=== PATIENT | male | born 1955 | race African-American/Black ===

== ENCOUNTER 2022-10-10 08:03 | Observation (INO) | payer BC, OTHER ==
--- OUTSIDE RECORDS SUMMARY | 2022-10-10 08:07 | XMS REPORT | Continuity of Care Document ---
:1955 Author Organization [facility] t Address [address] [facility]. [address] [place] [address] Care Team Providers Name Role Phone Wily Cardoza MD Primary Care Physician [phone] Rupali Glasgow MD Attending Clinician [phone] Parviz [facility] Attending Clinician Unavailable Kristel Millard MD Attending Clinician Bhupendra [facility] Attending Clinician Unavailable Brittany Arechiga MD Attending Clinician [email or web address] Attending Clinician Unavailable MARGIE MORE Attending Clinician Unavailable REED MONTANO Attending Clinician Unavailable MD JACK WITT Attending Clinician Unavailable Kelsey Kellogg Attending Clinician [phone] JOVANNI VALENZUELA Attending Clinician Unavailable MD MALENA GALVEZ Attending Clinician UnavailSUKHWINDER Sandra Attending Clinician Unavailable EUGENE BUCKLEY Attending Clinician Unavailable BARBER FOWLER Attending Clinician Unavailable JASMINA RICHTER Attending Clinician Unavailable JONY BRYANT Attending Clinician Unavailable MD JONY BRYANT Attending Clinician Unavailable JEFFREY BOGGS Attending Clinician Unavailable CINDA MONTEMAYOR Attending Clinician Unavailable LESTER SCOTT Attending Clinician Unavailable HASMUKH BROWN Attending Clinician Unavailable [email or web address] Admitting Clinician Unavailable BRITTANY ARECHIGA Admitting Clinician Unavailable JACK WITT Admitting Clinician Unavailable MARGIE MORE Admitting Clinician Unavailable JOVANNI VALENZUELA Admitting Clinician Unavailable MD MALENA GALVEZ Admitting Clinician UnavailJONY Martinez Admitting Clinician Unavailable MD GIBSON FERNANDEZ Admitting Clinician Unavailable Payers Payer Name Policy Type Policy Number Effective Date Expiration Date Moshe arteaga [facility] - [id number] 2021 [facility] 00:00:00 (MEDICARE REPLACEMENT/ADVANTA GE - HMO) [facility] - [id number] 2021 MEDICARE SOLUTIONS 00:00:00 - MEDICARE COMPLETE (MEDICARE REPLACEMENT HMO) Problems Condition Condition Condition Status Onset Resolution Last Treating Co mments Source Name Details Category Date Date Treatment Clinician Date Type 2 Type 2 Disease Active [facility] diabetes diabetes 07-04 mellitus, mellitus, 00:00: Hosp andrew without without 00 l long-term long-term current current use of use of insulin insulin Primary Primary Disease Active Methodi hypertensi hypertensi 07-04 st on on 00:00: Hospita 00 l Colorectal Colorectal Disease Active M ethodi cancer cancer 07-03 st 00:00: Hospita 00 l Symptomati Symptomati Disease Active Overview : Methodi c anemia c anemia 07-[address] 00:00: g of this Hospita 00 note l might be different from the original. Can be drug induced. Sp 2 units of PRBCs.To see Dr. More in am. Administe r 2 units of PRBCs intraoper atively. Malignant Malignant Disease Active 2020-04 Met hodi neoplasm neoplasm 05-12 st of liver, of liver, 00:00: Hosp andrew not not 00 l specified specified as primary as primary or or secondary secondary Overlappin Overlappin Disease Active 2020-04 M ethodi g g 05-12 st malignant malignant 00:00: Hosp andrew neoplasm neoplasm 00 l of colon of colon Bone Bone Disease Active Methodi metastasis metastasis 05-19 st 00:00: Hospita 00 l Prostate Prostate Disease Active 2019-04 Metho di cancer cancer 04-26 st 00:00: Hospita 00 l Allergies, Adverse Reactions, Alerts This patient has no known allergies or adverse reactions. Family History Family Member Diagnosis Comments Start Date Stop Date Source Natural brother [facility] Natural father Stroke [facility] Natural mother Asthma [facility] Natural sister [facility] Social History Social Habit Start Date Stop Date Quantity Comments Source Gender identity [facility] Sexual orientation [facility] History of Social 2022-07-03 2022-07-[address] function 00:00:00 00:00:00 Hospital Alcohol intake 2021-09-10 2021-09-10 Current drinker [facility] dist 00:00:00 00:00:00 of alcohol Hospital (finding) Cigarettes smoked 2021-07-06 2021-07-[address] current (pack per 00:00:00 00:00:00 Hospita l day) - Reported Cigarette 2021-07-06 2021-07-06 [facility] pack-years 00:00:00 00:00:00 Hospital Tobacco use and 2021-07-06 2021-07-06 Smokeless [facility] exposure 00:00:00 00:00:00 tobacco non-user Hospital Alcohol Comment 2021-07-06 2021-07-06 red wine [facility] 00:00:00 00:00:00 [facility] History of tobacco 1999-07-24 Current smoker [facility] use 00:00:00 Hospital Sex Ass[birth year] At [birth year] [facility] 00:00:[facility] 00:00:00 Hospital Smoking Status Start Date Stop Date Source Ex-smoker 2021-07-06 00:00:00 2021-07-06 00:00:00 [facility] Medications Ordered Filled Start Stop Current Ordering Indication Dosage Frequency Signature Comments Components Source Medication Medication Date Date Medication? Clinician (SIG) Name Name amLODIPine Yes 10mg QD Take 1 Metho di (NORVASC) 5-15 tablet (10 st 10 mg 15:09: mg total) Hospita tablet 29 by mouth l daily. atorvastati Yes 10mg QD Take 1 Meth lisa n (LIPITOR) 5-15 tablet (10 st 10 mg 15:09: mg total) Hospita tablet 29 by mouth l nightly. leuprolide, Yes 22.5mg Q90D Inject Me thodi 3 month, 5-[address] (ELIGARD) 15:09: under the Hos alma delia 22.5 mg (3 29 skin every l month) 3 (three) syringe months. megestroL Yes 400mg Q.5D Take 10 mL M ethodi (MEGACE) 5-15 ([address] 400 mg/10 15:09: total) by Hos alma delia mL (10 mL) 29 mouth 2 l suspension (two) times a day. megestroL 2021-04 Yes SHAKE Methodi (MEGACE) 0-[address] 400 mg/10 00:00: TAKE 10 ML Ho spita mL (40 00 BY MOUTH l mg/mL) TWICE suspension DAILY. HumaLOG 2021-04 Yes INJECT 4 Method i KwikPen 0-[address] Insulin 200 00:00: UNDER THE H ospita unit/mL (3 00 SKIN FOUR l mL) insulin TIMES pen DAILY subcutaneou BEFORE s pen EACH MEAL ACCORDING TO SCALE BD Tomeka 2nd Yes USE 1 Metho di Gen Pen 01-[address] Needle 32 00:00: FOUR TIMES Ho spita gauge x 00 DAILY l " needle OneTouch Yes USE TO Methodi Ultra Test 01-[address] strip test 00:00: SUGARS Hospi ta strips 00 THREE l TIMES DAILY promethazin Yes 25mg Take 1 Meth lisa e 8-18 tablet (25 st (PHENERGAN) 00:00: mg total) H ospita 25 MG 00 by mouth. l tablet FeroSuL 325 Yes 325mg Q.5D Take 1 Met hodi mg (65 mg 7-[address] iron) 00:00: (325 mg Hospita tablet 00 total) by l mouth 2 (two) times a day. clonIDINE Yes APPLY 1 Metho di (CATAPRES-T 7-[address] TS) 0.2 00:00: TOPICALLY Hospi ta mg/24 hr 00 TO THE l SKIN EVERY WEEK SITagliptin 0 2022- No 100mg QD Take 1 Me thodi (JANUVIA) 3 03-[address] 100 MG 00:00: 04:59 (100 mg Hospita tablet 00 :00 total) by l mouth daily with breakfast. Lumigan Yes 1[drp] QD Administer Me thodi 0.01 % 3-[address] ophthalmic 00:00: both eyes Ho spita drops 00 nightly. l amlodipine amlodipine No amlodipine Dispatc 10 mg 10 mg 10 mg h tablet TAKE tablet TAKE tablet Health 1 TABLET BY 1 TABLET BY TAKE 1 MOUTH DAILY MOUTH DAILY TABLET BY MOUTH DAILY docusate docusate No docusate Dis patc sodium 100 sodium 100 sodium 100 h mg capsule mg capsule mg capsule Health TAKE ONE TAKE ONE TAKE ONE CAPSULE BY CAPSULE BY CAPSULE BY MOUTH TWICE MOUTH TWICE MOUTH DAILY DAILY TWICE DAILY lidocaine-p lidocaine-p No lidocaine- Dispatc rilocaine rilocaine prilocaine h 2.5 %-2.5 % 2.5 %-2.5 % 2.5 %-2.5 Health topical topical % topical cream APPLY cream APPLY cream TOPICALLY TOPICALLY APPLY TO THE TO THE TOPICALLY AFFECTED AFFECTED TO THE AREA AREA AFFECTED NEEDED FOR NEEDED FOR AREA MILD PAIN. MILD PAIN. NEEDED FOR APPLY 1/2 APPLY 1/2 MILD PAIN. GRAM TO THE GRAM TO THE APPLY 1/2 SKIN OVER SKIN OVER GRAM TO THE PORT 1 THE PORT 1 THE SKIN HOUR PRIOR HOUR PRIOR OVER THE TO CHEMO. TO CHEMO. PORT 1 HOUR PRIOR TO CHEMO. Lumigan Lumigan No Lumigan Dispat c 0.01 % eye 0.01 % eye 0.01 % eye h drops drops drops Health INSTILL 1 INSTILL 1 INSTILL 1 DROP IN DROP IN DROP IN BOTH EYES BOTH EYES BOTH EYES EVERY DAY EVERY DAY EVERY DAY IN THE IN THE IN THE EVENING EVENING EVENING metoclopram metoclopram No metoclopra Dispatc fred 10 mg fred 10 mg mide 10 mg h tablet TAKE tablet TAKE tablet Health 1 TABLET BY 1 TABLET BY TAKE 1 MOUTH 4 MOUTH 4 TABLET BY TIMES A DAY TIMES A DAY MOUTH 4 NEEDED NEEDED TIMES A FOR NAUSEA FOR NAUSEA DAY NEEDED FOR NAUSEA OneTouch OneTouch No OneTouch Dis patc Ultra Test Ultra Test Ultra Test h strips USE strips USE strips USE Health 1 STRIP 1 STRIP 1 STRIP THREE TIMES THREE TIMES THREE DAILY DAILY TIMES DAILY polyethylen polyethylen No polyethyle Dispatc e glycol e glycol ne glycol h (bulk) 17gr (bulk) 17gr (bulk) Health packet packet 17gr daily daily packet daily sitagliptin sitagliptin No 1 Q1D sitaglipti Dispatc 100 mg 100 mg n 100 mg h tablet Take tablet Take tablet Health 1 tablet 1 tablet Take 1 every day every day tablet by oral by oral every day route with route with by oral meals. meals. route with meals. tamsulosin tamsulosin No tamsulosin Dispatc 0.4 mg 0.4 mg 0.4 mg h capsule capsule capsule Health tramadol 50 tramadol 50 No tramadol Dispatc mg tablet mg tablet 50 mg h tablet Health Immunizations Ordered Immunization Filled Immunization Date Status Commen ts Source Name Name ANGELITA [facility] 2021-02-04 Completed [facility] VACCINATION 00:00:00 [facility] PFIZER COVID-19 MRNA 2020-06-20 Completed [facility] VACCINATION 00:00:00 [facility] PFIZER COVID-19 MRNA 2020-05-30 Completed [facility] VACCINATION 00:00:00 Hospital Vital Signs Vital Name Observation Time Observation Value Comments Source BP Diastolic 2021-07-21 00:00:00 64 mm[Hg] [facility] BP Systolic 2021-07-21 00:00:00 140 mm[Hg] [facility] Heart rate 2022-09-06 20:04:50 76 /min [facility] Body temperature 2022-09-06 20:04:50 35.83 Mary[place] Respiratory rate 2022-09-06 20:04:50 20 /min [facility] Oxygen saturation in 2022-09-06 20:04:50 99 /min [facility] Arterial blood by Pulse oximetry Systolic blood 2022-09-06 20:04:50 154 mm[Hg] [facility] pressure Diastolic blood 2022-09-06 20:04:50 73 mm[Hg] [facility] pressure Body height 2022-09-06 20:00:00 172.7 cm [facility] Body weight 2022-09-06 20:00:00 85.276 kg [facility] BMI 2022-09-06 20:00:00 28.59 kg/m2 [facility] Procedures Procedure Date / Time Performed Performing Clinician Toya luis MRI PELVIS W WO 2022-02-22 21:46:44 Rupali Glasgow [facility] CONTRAST MRI ABDOMEN W WO 2021-10-28 13:03:00 Rupali Glasgow [facility] CONTRAST NM BONE SCAN WHOLE 2021-10-19 19:13:00 Rupali Glasgow [facility] BODY Plan of Care Planned Activity Planned Date Details Comments Source Future Scheduled Test 2022-10-08 65+ PNEUMOCOCCAL [facility] 13:39:11 VACCINE (1 - PCV) [code = 65+ PNEUMOCOCCAL VACCINE (1 - PCV)] Future Scheduled Test 2022-10-08 DIABETES: RETINAL EYE [facility] 13:39:11 EXAM [code = DIABETES: RETINAL EYE EXAM] Future Scheduled Test 2022-10-08 DIABETIC FOOT EXAM [facility] 13:39:11 [code = DIABETIC FOOT EXAM] Future Scheduled Test 2022-10-08 Hepatitis C screening [facility] 13:39:11 (procedure) [code = 831559254] Future Scheduled Test 2022-10-08 SHINGLES VACCINES (1 [facility] 13:39:11 of 2) [code = SHINGLES VACCINES (1 of 2)] Future Scheduled Test 2022-10-08 HEPATITIS B VACCINES [facility] 13:39:11 (1 of 3 - Risk 3-dose series) [code = HEPATITIS B VACCINES (1 of 3 - Risk 3-dose series)] Future Scheduled Test 2022-10-08 INFLUENZA VACCINE [facility] 13:39:11 [code = INFLUENZA VACCINE] Instructions [facility] Encounters Start End Encounter Admission Attending Care Care Encounter Source Date/Time Date/Time Type Type Clinicians Facility Department ID 2022-09-06 2022-09-06 Nurse Only Myah 1.2.840.1 [id number] Methodi 15:00:00 15:30:00 Rupali 22787.1.1 908 [facility] 3.430.2.7 Hospit a .3.483054 l .8 2022-09-06 2022-09-06 Outpatient MYAH [facility] [id number] [place] 00:00:00 00:00:[address] [facility] 2022-09-06 2022-09-06 Travel 1.2.840.1 1.2.528.663 [id number] Methodi 00:00:00 00:00:[address] 3.430.2.7 0.2.7.3.698 Ho spita .3.722886 084.8 l .8 2022-06-14 2022-06-14 Nurse Only Myah, 1.2.840.1 [id number] 2 [id number] Methodi 15:00:00 15:30:[address] [place] 3.430.2.7 Hospit a .3.417261 l .8 2022-06-14 2022-06-14 Outpatient [facility] [id number] [place] 00:00:00 00:00:[address]UPAL[address] 2022-06-14 2022-06-14 Travel 1.2.840.1 1.2.433.747 2412 [id number] Methodi 00:00:00 00:00:[address] 3.430.2.7 0.2.7.3.698 Ho spita .3.972489 084.8 l .8 2022-06-14 2022-06-14 Orders Jj, 1.2.840.1 [id number] [id number] Methodi 00:00:00 00:00:00 Only Alysia Evans 69337.1.[address] 3.430.2.7 Hospit a .3.778786 l .8 2022-06-03 2022-06-03 Lab Diggs, 1.2.840.1 [id number] Methodi 14:30:00 14:35:[address] Jg 3.430.2.7 Hospit a .3.753393 l .8 2022-06-03 2022-06-03 Outpatient [facility] [id number] [place] 00:00:00 00:00:[address] KRISTEL [address] 2022-03-22 2022-03-22 Nurse Only Myah, 1.2.840.1 [id number] 2 [id number] Methodi 15:30:00 16:00:[address] [place] 3.430.2.7 Hospit a .3.697068 l .8 2022-03-22 2022-03-22 Outpatient [facility] [id number] [place] 00:00:00 00:00:00 RUPALI [address] 2022-03-22 2022-03-22 Travel 1.2.840.1 1.2.535.253 [id number] [id number] Methodi 00:00:00 00:00:[address] 3.430.2.7 0.2.7.3.698 Ho spita .3.365100 084.8 l .8 2022-03-17 2022-03-17 Transcribe [facility], 1.2.840.1 [id number] 2 [id number] Methodi 00:00:00 00:00:00 Orders Rupali 91388.1.[address] [place] 3.430.2.7 Hospit a .3.708555 l .8 2022-02-22 2022-02-22 [facility], 1.2.840.1 [id number] Methodi 15:34:46 23:59:00 Encounter Rupali 53659.1.[address] [place] 3.430.2.7 Hospit a .3.047909 l .8 2022-02-22 2022-02-22 Outpatient [facility] [id number] [place] 00:00:00 00:00:00 RUPALI [address] 2022-02-22 2022-02-22 Travel 1.2.840.1 1.2.923.834 9855 [id number] Methodi 00:00:00 00:00:[address] 3.430.2.7 0.2.7.3.698 Ho spita .3.636837 084.8 l .8 2022-02-08 2022-02-08 Travel 1.2.840.1 1.2.042.879 8574 [id number] Methodi 00:00:00 00:00:[address] 3.430.2.7 0.2.7.3.698 Ho spita .3.034503 084.8 l .8 2022-02-05 2022-02-05 Transcribe [place], 1.2.840.1 [id number] 2 [id number] Methodi 00:00:00 00:00:00 Orders Rupali 89978.1.[address] [place] 3.430.2.7 Hospit a .3.163126 l .8 2021-12-25 2021-12-25 Nurse Only [place], 1.2.840.1 [id number] 2 [id number] Methodi 13:30:00 14:00:[address] [place] 3.430.2.7 Hospit a .3.970341 l .8 2021-12-25 2021-12-25 Outpatient MYAH, [facility] [id number] [place] 00:00:00 00:00:00 RUPALI [address] 2021-12-25 2021-12-25 Orders Myah, 1.2.840.1 [id number] [id number] Methodi 00:00:00 00:00:00 Only Rupali 94979.1.[address] [place] 3.430.2.7 Hospit a .3.560352 l .8 2021-12-25 2021-12-25 Travel 1.2.840.1 1.2.850.546 0927 [id number] Methodi 00:00:00 00:00:[address] 3.430.2.7 0.2.7.3.698 Ho spita .3.071151 084.8 l .8 2021-12-24 2021-12-24 Orders Castorina, 1.2.840.1 [id number] Methodi 00:00:00 00:00:00 Only Jael 01667.1.[address] 3.430.2.7 Hospit a .3.944382 l .8 2021-12-02 2021-12-02 Lab Myah, 1.2.840.1 [id number] 2099 [id number] Methodi 10:45:00 10:50:[address] [place] 3.430.2.7 Hospit a .3.964959 l .8 2021-12-02 2021-12-02 Outpatient [facility] [id number] [place] 00:00:00 00:00:00 RUPALI [address] 2021-12-01 2021-12-01 Office [facility], 1.2.840.1 [id number] Methodi 14:30:00 14:36:36 Visit Ali 31210.1.[address] 3.430.2.7 Hospit a .3.123292 l .8 2021-12-01 2021-12-01 Outpatient [facility] [id number] 0756 [place] 00:00:00 00:00:[address] ALI [address] 2021-12-01 2021-12-01 [facility], 1.2.840.1 [id number] 21 [id number] Methodi 00:00:00 00:00:00 Orders Rupali 44470.1.[address] [place] 3.430.2.7 Hospit a .3.848842 l .8 2021-11-10 2021-11-10 Travel 1.2.840.1 1.2.880.943 5154 [id number] Methodi 00:00:00 00:00:[address] 3.430.2.7 0.2.7.3.698 spita .3.797032 084.8 l .8 2021-10-28 2021-10-28 [facility] 1.2.840.1 [id number] Methodi 06:58:19 23:59:00 Encounter Rupali 13985.1.[address] [place] 3.430.2.7 Hospit a .3.482470 l .8 2021-10-28 2021-10-28 Outpatient [facility] [id number] [place] 00:00:00 00:00:00 RUPALI [address] 2021-10-28 2021-10-28 Travel 1.2.840.1 1.2.090.741 6699 [id number] Methodi 00:00:00 00:00:[address] 3.430.2.7 0.2.7.3.698 Ho spita .3.626773 084.8 l .8 2021-10-23 2021-10-23 Travel 1.2.840.1 1.2.652.884 1096 [id number] Methodi 00:00:00 00:00:[address] 3.430.2.7 0.2.7.3.698 Ho spita .3.527398 084.8 l .8 2021-10-19 2021-10-19 [facility], 1.2.840.1 [id number] 928 [id number] Methodi 09:39:58 23:59:00 Encounter Rupali 45293.1.[address] [place] 3.430.2.7 Hospit a .3.073199 l .8 2021-10-19 2021-10-19 [facility] 1.2.840.1 [id number] Methodi 09:39:41 23:59:00 Encounter Rupali 84611.1.[address] [place] 3.430.2.7 Hospit a .3.430825 l .8 2021-10-19 2021-10-19 Outpatient [facility] [id number] [place] 00:00:00 00:00:00 RUPALI [address] 2021-10-19 2021-10-19 Outpatient [facility] [id number] [place] 00:00:00 00:00:00 RUPALI [address] 2021-10-19 2021-10-19 Travel 1.2.840.1 1.2.072.765 2036 [id number] Methodi 00:00:00 00:00:[address] 3.430.2.7 0.2.7.3.698 Ho spita .3.151031 084.8 l .8 2021-10-18 2021-10-18 Outpatient [id number] DISP DISP 603 Dispatc 12:44:00 12:44:00 3 45539 h [facility] 2021-10-02 2021-10-02 Outpatient MYAH, [facility] [id number] [place] 00:00:00 00:00:00 RUPALI [address] 2021-09-24 2021-09-24 Outpatient ELENA, [facility] [id number] 1098 [place] 00:00:00 00:00:00 ALI [address] 2021-09-17 2021-09-17 Outpatient JEANRIA, [facility] [id number] 8153 [place] 00:00:00 00:00:00 MARGIE [address] 2021-09-14 2021-09-14 Outpatient DISP DISP 603 Dispatc 01:18:00 01:18:00 3 h [facility] 2021-09-09 2021-09-13 Inpatient ELENA, [facility] [id number] 850 [place] 00:00:00 00:00:00 ALI [address] 2021-09-07 2021-09-07 Outpatient ELENA, [facility] [id number] [place] 00:00:00 00:00:00 ALI [address] 2021-08-13 2021-08-16 Inpatient CHARMAINE, [facility] 064 [id number] [place] 00:00:00 00:00:00 REED [address] 2021-08-11 2021-08-11 Outpatient MYAH, [facility] [id number] [place] 00:00:00 00:00:00 RUPALI [address] 2021-08-09 2021-08-09 Outpatient avehhndlv85 DISP DISP 603 Dispatc 01:09:00 01:09:00 3 08490 h [facility] 2021-08-09 2021-08-09 Outpatient DISP DISP 603 Dispatc 01:09:00 01:09:00 3 16452 h [facility] 2021-07-31 2021-07-31 Outpatient ELENA, [facility] [id number] 4208 [place] 00:00:00 00:00:00 ALI 623 Method i 2021-07-30 2021-07-30 Outpatient SAHARIA, [facility] [id number] 8857 [place] 00:00:00 00:00:00 MARGIE 435 Method i 2021-07-21 2021-07-21 Outpatient [id number] DISP DISP 603 Dispatc 02:20:00 02:20:00 3 35466 h Health 2021-07-21 2021-07-21 Kelsey DISP CO - [id number] D ispatc 00:00:00 00:00:00 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 2021-07-21 2021-07-21 Outpatient Valdez [facility] DISP DISP ff0 03438-a 00:00:00 00:00:00 [id number] 2021-07-20 2021-07-20 Outpatient [id number] DISP DISP 603 Dispatc 06:06:00 06:06:00 3 58870 h [facility] 2021-07-03 2021-07-17 Inpatient SAHARIA, [facility] 866 [id number] 863 [place] 00:00:00 00:00:00 MARGIE 007 Method i 2021-07-03 2021-07-03 Outpatient SAHARIA, [facility] 021 [id number] 0009 [place] 00:00:00 00:00:00 MARGIE 165 Method i 2021-07-01 2021-07-02 Outpatient KHALIQ, [facility] [id number] 672 [place] 00:00:00 00:00:00 MAHPARA 912 Method i 2021-06-26 2021-06-26 Emergency GUHAROY, [facility] [id number] 363 [place] 00:00:00 00:00:00 RAJEEB 367 Method i 2021-06-24 2021-06-24 Outpatient INA, [facility] [id number] [place] 00:00:00 00:00:00 EUGENE 439 Method i 2021-06-22 2021-06-22 Emergency NWEZE, [facility] 064 [id number] 72 [place] 00:00:00 00:00:00 BARBER 577 Method i 2021-06-19 2021-06-19 Outpatient DARCOURT, [facility] [id number] [place] 00:00:00 00:00:00 RUPALI 479 Method i 2021-06-17 2021-06-17 Outpatient DARCOURT, [facility] [id number] [place] 00:00:00 00:00:00 RUPALI [address] 2021-06-15 2021-06-15 Outpatient DARCOURT, [facility] [id number] [place] 00:00:00 00:00:00 RUPALI 965 Method i 2021-06-13 2021-06-13 Emergency RICHTER, [facility] 589 [id number] 474 [place] 00:00:00 00:00:00 JASMINA 545 Method i 2021-06-10 2021-06-10 Outpatient DARCOURT, [facility] [id number] 06870 [place] 00:00:00 00:00:00 RUPALI 350 Method i 2021-06-08 2021-06-08 Outpatient SAHARIA, [facility] [id number] 6702 [place] 00:00:00 00:00:00 MARGIE 428 Method i 2021-06-05 2021-06-05 Outpatient DARCOURT, [facility] [id number] [place] 00:00:00 00:00:00 RUPALI 400 Method i 2021-06-03 2021-06-03 Outpatient DARCOURT, [facility] [id number] [place] 00:00:00 00:00:00 RUPALI 347 Method i 2021-06-01 2021-06-01 Outpatient DARCOURT, [facility] [id number] [place] 00:00:00 00:00:00 RUPALI 169 [facility] 2021-05-22 2021-05-22 Outpatient DARCOURT, [facility] [id number] [place] 00:00:00 00:00:00 RUPALI 212 [facility] 2021-05-20 2021-05-20 Outpatient DARCOURT, [facility] [id number] [place] 00:00:00 00:00:00 RUPALI [address] 2021-05-18 2021-05-18 Outpatient DARCOURT, [facility] [id number] [place] 00:00:00 00:00:00 RUPALI [address] 2021-05-08 2021-05-08 Outpatient DARCOURT, [facility] [id number] [place] 00:00:00 00:00:00 RUPALI [address] 2021-05-06 2021-05-06 Outpatient DARCOURT, [facility] [id number] [place] 00:00:00 00:00:00 RUPALI [address] 2021-05-04 2021-05-04 Outpatient DARCOURT, [facility] [id number] [place] 00:00:00 00:00:00 RUPALI [address] 2021-05-04 2021-05-04 Outpatient DARCOURT, [facility] [id number] [place] 00:00:00 00:00:00 RUPALI [address] 2021-04-23 2021-04-23 Outpatient DARCOURT, [facility] [id number] [place] 00:00:00 00:00:00 RUPALI [address] 2021-04-22 2021-04-22 Outpatient SAHARIA, [facility] [facility] [id number] [place] 00:00:00 00:00:00 MARGIE [address] 2021-04-21 2021-04-21 Outpatient DARCOURT, [facility] [id number] [place] 00:00:00 00:00:00 RUPALI [address] 2021-04-20 2021-04-20 Outpatient DARCOURT, [facility] [id number] [place] 00:00:00 00:00:00 RUPALI [address] 2021-04-10 2021-04-10 Outpatient DARCOURT, [facility] [id number] [place] 00:00:00 00:00:00 RUPALI [address] 2021-04-08 2021-04-08 Outpatient DARCOURT, [facility] [id number] [place] 00:00:00 00:00:00 RUPALI [address] 2021-04-06 2021-04-06 Outpatient DARCOURT, [facility] [id number] [place] 00:00:00 00:00:00 RUPALI [address] 2021-04-06 2021-04-06 Outpatient DARCOURT, [facility] [id number] [place] 00:00:00 00:00:00 RUPALI [address] 2021-03-23 2021-03-23 Outpatient FIMAN, H 818 [id number] [place] 00:00:00 00:00:00 JONY [address] 2021-03-18 2021-03-18 Outpatient DARCOURT, [facility] [id number] [place] 00:00:00 00:00:00 RUPALI [address] 2021-03-18 2021-03-18 Outpatient DARCOURT, [facility] [id number] [place] 00:00:00 00:00:00 RUPALI [address] 2021-03-17 2021-03-17 Outpatient FIMAN, [facility] [id number] [place] 00:00:00 00:00:00 JONY [address] 2021-03-16 2021-03-16 Outpatient DARCOURT, [facility] [id number] [place] 00:00:00 00:00:00 RUPALI [address] 2021-03-12 2021-03-12 Outpatient DARCOURT, [facility] [id number] [place] 00:00:00 00:00:00 RUPALI [address] 2021-03-04 2021-03-04 Outpatient DARCOURT, [facility] [id number] [place] 00:00:00 00:00:00 RUPALI [address] 2021-03-02 2021-03-02 Outpatient DARCOURT, [facility] [id number] [place] 00:00:00 00:00:00 RUPALI [address] 2021-02-05 2021-02-05 Outpatient SHKEDY, [facility] [id number] [place] 00:00:00 00:00:00 JEFFREY [address] 2021-02-04 2021-02-04 Outpatient [facility] [id number] [place] 00:00:00 00:00:[address] 2021-01-28 2021-01-28 Outpatient DARCOURT, [facility] [id number] [place] 00:00:00 00:00:00 RUPALI [address] 2021-01-28 2021-01-28 Outpatient DARCOURT, [facility] [id number] [place] 00:00:00 00:00:00 RUPALI [address] [facility] 2021-01-15 2021-01-15 Outpatient DARCOURT, [facility] [id number] [place] 00:00:00 00:00:00 RUPALI [address] [facility] 2021-01-14 2021-01-14 Outpatient DARCOURT, [facility] [id number] [place] 00:00:00 00:00:00 RUPALI 021 [facility] 2021-01-09 2021-01-09 Outpatient DARCOURT, [facility] [id number] [place] 00:00:00 00:00:00 RUPALI 664 [facility] 2020-12-24 2020-12-24 Outpatient DARCOURT, [facility] [id number] [place] 00:00:00 00:00:00 RUPALI 965 [facility] 2020-10-17 2020-10-17 Outpatient SHKEDY, [facility] [id number] [place] 00:00:00 00:00:00 JEFFREY 7[address] [facility] 2020-09-29 2020-09-29 Outpatient DARCOURT, [facility] [id number] [place] 00:00:00 00:00:00 RUPALI 977 [facility] 2020-09-17 2020-09-17 Outpatient DARCOURT, [facility] [id number] [place] 00:00:00 00:00:00 RUPALI 687 [facility] 2020-09-01 2020-09-01 Outpatient [facility] [id number] [place] 00:00:00 00:00:00 [address] [facility] 2020-09-01 2020-09-01 Outpatient SHKEDY, [facility] [id number] [place] 00:00:00 00:00:00 JEFFREY [address] [facility] 2020-08-29 2020-08-29 Outpatient [facility] [id number] [place] 00:00:00 00:00:00 [address] [facility] 2020-08-28 2020-08-28 Outpatient [facility] [id number] [place] 00:00:00 00:00:[address] 2020-08-28 2020-08-28 Outpatient FLAKITA [facility] [id number] [place] 00:00:00 00:00:00 JEFFREY [address] 2020-08-27 2020-08-27 Outpatient [facility] [id number] [place] 00:00:00 00:00:[address] 2020-08-26 2020-08-26 Outpatient [facility] [id number] Maurizio [place] 00:00:00 00:00:[address] 2020-08-25 2020-08-25 Outpatient FLAKITA [facility] [id number] 674 [place] 00:00:00 00:00:00 JEFFREY [address] 2020-08-25 2020-08-25 Outpatient [facility] [id number] [place] 00:00:00 00:00:[address] 2020-08-22 2020-08-22 Outpatient [facility] [id number] Maurizio [place] 00:00:00 00:00:[address] 2020-08-21 2020-08-21 Outpatient [facility] [id number] Maurizio [place] 00:00:00 00:00:[address] 2020-08-21 2020-08-21 Outpatient FLAKITA [facility] [id number] [place] 00:00:00 00:00:00 JEFFREY [address] 2020-08-20 2020-08-20 Outpatient [facility] [id number] [place] 00:00:00 00:00:[address] 2020-08-19 2020-08-19 Outpatient [facility] [id number] Maurizio [place] 00:00:00 00:00:[address] 2020-08-18 2020-08-18 Outpatient [facility] [id number] Maurizio [place] 00:00:00 00:00:[address] 2020-08-15 2020-08-15 Outpatient [facility] [id number] [address] [place] [address] 00:00:00 00:00:[address] 2020-08-14 2020-08-14 Outpatient [facility] [id number] 252 [place] 00:00:00 00:00:[address] 2020-08-14 2020-08-14 Outpatient FLAKITA, [facility] [id number] [place] 00:00:00 00:00:00 JEFFREY [address] 2020-08-13 2020-08-13 Outpatient [facility] [id number] [place] 00:00:00 00:00:[address] 2020-08-12 2020-08-12 Outpatient [facility] [id number] [place] 00:00:00 00:00:[address] 2020-08-11 2020-08-11 Outpatient [facility] [id number] 252 [place] 00:00:00 00:00:[address] 2020-08-08 2020-08-08 Outpatient [facility] [id number] [place] 00:00:00 00:00:[address] 2020-08-08 2020-08-08 Outpatient FLAKITA, [facility] [id number] [place] 00:00:00 00:00:00 JEFFREY [address] 2020-08-07 2020-08-07 Outpatient FLAKITA, [facility] [id number] [place] 00:00:00 00:00:00 JEFFREY [address] 2020-08-07 2020-08-07 Outpatient [facility] [id number] 252 [place] 00:00:00 00:00:[address] 2020-08-06 2020-08-06 Outpatient [facility] [id number] [place] 00:00:00 00:00:[address] 2020-08-05 2020-08-05 Outpatient [facility] [id number] [place] 00:00:00 00:00:[address] 2020-08-01 2020-08-01 Outpatient SHHAMIDA, [facility] [id number] [place] 00:00:00 00:00:00 JEFFREY [address] 2020-08-01 2020-08-01 Outpatient FLAKITA, [facility] [id number] [place] 00:00:00 00:00:00 JEFFREY [address] 2020-07-23 2020-07-23 Outpatient SHKEDY, [facility] [id number] [place] 00:00:00 00:00:00 JEFFREY [address] 2020-07-23 2020-07-23 Outpatient SHKEDY, [facility] [id number] [place] 00:00:00 00:00:00 JEFFREY [address] 2020-07-21 2020-07-21 Outpatient DARCOURT, [facility] [id number] [place] 00:00:00 00:00:00 RUPALI [address] 2020-07-14 2020-07-14 Outpatient DARCOURT, [facility] [id number] [place] 00:00:00 00:00:00 RUPALI [address] 2020-07-14 2020-07-14 Outpatient DARCOURT, [facility] [id number] [place] 00:00:00 00:00:00 RUPALI [address] 2020-07-14 2020-07-14 Outpatient DARCOURT, [facility] [id number] [place] 00:00:00 00:00:00 RUPALI [address] 2020-07-14 2020-07-14 Outpatient DARCOURT, [facility] [id number] [place] 00:00:00 00:00:00 RUPALI [address] 2020-06-23 2020-06-23 Outpatient DARCOURT, [facility] [id number] [place] 00:00:00 00:00:00 RUPALI [address] 2020-06-20 2020-06-20 Outpatient ROBBEN, [facility] [id number] 704 [place] 00:00:00 00:00:00 DARIAER [address] 2020-05-30 2020-05-30 Outpatient [facility] [id number] [place] 00:00:00 00:00:[address] 2020-05-19 2020-05-19 Outpatient DARCOURT, [facility] [id number] [place] 00:00:00 00:00:00 RUPALI [address] 2020-05-12 2020-05-12 Outpatient DARCOURT, [facility] [id number] [place] 00:00:00 00:00:00 RUPALI [address] 2020-03-31 2020-03-31 Outpatient DARCOURT, [facility] [id number] [place] 00:00:00 00:00:00 RUPALI [address] 2020-03-31 2020-03-31 Outpatient DARCOURT, [facility] [id number] [place] 00:00:00 00:00:00 RUPALI [address] 2020-03-06 2020-03-06 Outpatient DARCOURT, [facility] [id number] [place] 00:00:00 00:00:00 RUPALI [address] 2020-02-25 2020-02-25 Outpatient DARCOURT, [facility] [id number] [place] 00:00:00 00:00:00 RUPALI [address] 2020-02-25 2020-02-25 Outpatient DARCOURT, [facility] [id number] [place] 00:00:00 00:00:00 RUPALI [address] 2020-02-20 2020-02-20 Outpatient EKERUO, [facility] [id number] 915 [place] 00:00:00 00:00:00 LESTER [address] 2020-02-13 2020-02-13 Outpatient EKERUO, [facility] [id number] 888 [place] 00:00:00 00:00:00 LESTER [address] 2020-02-08 2020-02-08 Outpatient EKERUO, [facility] [id number] 868 [place] 00:00:00 00:00:00 LESTER [address] 2020-02-08 2020-02-08 Outpatient EKERUO, [facility] [id number] 868 [place] 00:00:00 00:00:00 LESTER [address] 2020-02-08 2020-02-08 Outpatient EKERUO, [facility] [id number] 868 [place] 00:00:00 00:00:00 LESTER [address] 2020-01-11 2020-01-11 Outpatient EKERUO, [facility] [id number] [place] 00:00:00 00:00:00 LESTER [address] 2020-01-11 2020-01-11 Outpatient EKERUO, [facility] [id number] [place] 00:00:00 00:00:00 LESTER [address] 2019-12-25 2019-12-25 Outpatient SONIA, [facility] [id number] [place] 00:00:00 00:00:00 LESTER [address] 2019-10-31 2019-10-31 Emergency BROWN, [facility] [id number] [place] 00:00:00 00:00:00 HASMUKH [address] Results Test Description Test Time Test Comments Results Result Comments Source SARS-CoV-2 (COVID-19) RNA [Presence] in Respiratory sp ecimen by 2021-08-13 21:54:00 DEVON with probe detection Test Item Value Reference Range Interpretation Comme nts SARS-CoV-2 (COVID-19) RNA [Presence] in Respiratory specimen by Not detected DEVON with probe detection (test code = 46790-3) Whether patient is employed in a healthcare setting (test code = Un known 68708-8) Whether the patient has symptoms related to condition of interest U nknown (test code = 22756-6) Whether the patient was hospitalized for condition of interest Unkn own (test code = 57745-3) Whether the patient was admitted to intensive care unit (ICU) for U nknown condition of interest (test code = 97026-1) Whether patient resides in a congregate care setting (test code = U nknown 33337-8) status (test code = 46828-4) Unknown Date and time of symptom onset (test code = 25896-8) [facility] [Presence] in Respiratory specimen by DEVON with probe [id number] 07:52:14 Test Item Value Reference Range Interpretation Comments SARS-CoV-2 (COVID-19) RNA Not detected [Presence] in Respiratory specimen by DEVON with probe detection (test code = 42742-8) Whether patient is employed in a Unknown healthcare setting (test code = 84815-4) Whether the patient has symptoms Unknown related to condition of interest (test code = 48657-5) Whether the patient was Unknown hospitalized for condition of interest (test code = 62079-9) Whether the patient was admitted Unknown to intensive care unit (ICU) for condition of interest (test code = 96727-4) Whether patient resides in a Unknown congregate care setting (test code = 88537-2) status (test code = Unknown 04850-7) Date and time of symptom onset Unknown (test code = 93708-3) [facility] RNA [Presence] in Respiratory specimen by DEVON with probe [id number] 22:17:57 Test Item Value Reference Range Interpretation Comments SARS-CoV-2 (COVID-19) RNA Not detected Not-Detected [Presence] in Respiratory specimen by DEVON with probe detection (test code = 58361-5) Whether patient is employed in a healthcare setting (test code = 77977-9) Whether the patient has symptoms related to condition of interest (test code = 87990-9) Patient was hospitalized because of this condition (test code = 27228-6) Whether the patient was admitted to intensive care unit (ICU) for condition of interest (test code = 37947-9) Whether patient resides in a congregate care setting (test code = 78569-7) [facility]
[2022-10-10] MEDS ORDERED: ONDANSETRON 4 MG/2 ML VIAL ONE (08:30)
[2022-10-10] MEDS ORDERED: NA CHLORIDE 0.9% 1,000 ML ONE (08:53)
--- NOTE | 2022-10-10 09:00 | RAD REPORT ---
EXAM DESCRIPTION: CT - Head Brain Wo Cont - 10/10/2022 8:42 am CLINICAL HISTORY: SYNCOPE COMPARISON: No comparisons TECHNIQUE: Noncontrast head CT images ad were obtained without IV contrast. Multiplanar reformats we re generated and reviewed. All CT scans are performed using dose optimization technique as appropriate and may include automated exposure control or mA/KV adjustment according to patient size. FINDINGS: No intracranial hemorrhage, mass, or edema. Midline structures are unremarkable. Mild diffuse parenchymal volume loss, with proportionate mild ventricular caliber prominence Gutiérrez-white matter differentiation is preserved, without evidence of acute infarct. No abnormal extra- axial fluid collections. Mastoid air cells are well aerated. Moderate mucosal thickening within the maxillary sinuses bilatera lly, with sequelae of prior antrostomies. No acute bony findings. IMPRESSION: No evidence of an acute intracranial process. Chronic findings as above.
--- NOTE | 2022-10-10 09:02 | RAD REPORT ---
EXAM DESCRIPTION: Carine Single View10/10/2022 8:24 am CLINICAL HISTORY: syncope COMPARISON: No comparisons TECHNIQUE: Portable AP view of the chest. FINDINGS: Left chest wall medication port in place with catheter tip projecting over the proximal SV C. Left mid to lower lung streaky opacification, mild, and nonspecific, could relate to scarring or r eactive airway changes. Blunting of the left costophrenic angle, could represent pleural thickening o r trace effusion. The lungs are otherwise clear. No pneumothorax or effusion. The cardiomediastinal contours are unremarkable. IMPRESSION: No evidence of focal pneumonia. Streaky left mid lung airspace opacification, could rela te to scarring or reactive airway changes/viral infection. Left pleural thickening versus trace effus ion.
[2022-10-10 10:14] LABS: Absolute Lymphocytes (CBC) 0.6 K/uL (0.7-4.9); Hematocrit 37.5 % (39.6-49.0); Lymphocytes % 41.6 % (15.3-44.8); MCV 98.7 fL (80-100); MPV 8.2 fL (7.6-11.3)
[2022-10-10 10:20] LABS: Protime INR 1.26
[2022-10-10 10:34] LABS: Albumin 3.1 g/dL (3.4-5.0); Bilirubin Direct 0.2 mg/dL (0-0.2); Bilirubin Indirect, Calculated 0.5 mg/dL (0.2-0.8); Bilirubin Total 0.7 mg/dL (0.2-1.0); Magnesium 2.5 mg/dL (1.6-2.4); Potassium 3.9 mEq/L (3.5-5.1); Protein, Total 7.4 g/dL (6.4-8.2)
[2022-10-10 10:36] LABS: Troponin High Sensitivity 555.6 pg/mL (<58.9)
[2022-10-10] MEDS ORDERED: METOPROLOL TARTRATE 5 MG/5 ML INJ IV ONE (10:54)
[2022-10-10] MEDS ORDERED: ASPIRIN 81 MG CHEWABLE TABLET ONE (12:02)
[2022-10-10] MEDS ORDERED: HEPARIN 5000 UNIT/ML 1 ML VIAL ONE (12:02)
[2022-10-10] MEDS ORDERED: HEPARIN/D5W 25,000 UNIT/500 ML BAG IV ONE (12:02)
--- NOTE | 2022-10-10 12:02 | EDPHYS ---
Physician Documentation [facility] Name: Tez Agustin Age: 66 yrs Sex: Male : 1955 Arrival Date: 10/10/2022 Time: 08:03 Bed 4 Private MD: ED Physician Rhianna Watts HPI: 10/10 08:25 This 66 yrs old Black Male presents to ER via EMS with complaints of Syncope. sp3 08:31 66-year-old male with a history of colon cancer now presents to the ED with chief sp3 complaint generalized weakness and syncope that occurred just prior to arrival. Patient states that he had a bowel movement in the restroom and after he got up cleaned his hands and walked out of the bathroom, he is felt like he was going to pass out which point he leaned against the wall and gently came down to the ground after which she slowly came "back around". Possible full loss of consciousness however no traumatic injuries reported. Patient's family member assisted patient back up and activated EMS for which she is now here. Patient is on chemotherapy every [address] Amaro For his colon cancer treatment.. Historical: - Allergies: 08:10 No Known Allergies; ph - Immunization history:: Adult Immunizations unknown. - Social history:: Smoking status: Patient denies any tobacco usage or history of. ROS: 08:33 Constitutional: Negative for fever, chills, and weight loss, Eyes: Negative for injury, sp3 pain, redness, and discharge, ENT: Negative for injury, pain, and discharge, Neck: Negative for injury, pain, and swelling, Cardiovascular: Negative for chest pain, palpitations, and edema, Respiratory: Negative for shortness of breath, cough, wheezing, and pleuritic chest pain, Abdomen/GI: Negative for abdominal pain, nausea, vomiting, diarrhea, and constipation, Back: Negative for injury and pain, MS/Extremity: Negative for injury and deformity, Skin: Negative for injury, rash, and discoloration, Psych: Negative for depression, anxiety, suicide ideation, homicidal ideation, and hallucinations, Allergy/Immunology: Negative for hives, rash, and allergies, Endocrine: Negative for neck swelling, polydipsia, polyuria, polyphagia, and marked weight changes, Hematologic/Lymphatic: Negative for swollen nodes, abnormal bleeding, and unusual bruising. 08:33 All other systems are negative. Exam: 08:33 Constitutional: This is a well developed, well nourished patient who is awake, alert, sp3 and in no acute distress. Head/Face: Normocephalic, atraumatic. Eyes: Pupils equal round and reactive to light, extra-ocular motions intact. Lids and lashes normal. Conjunctiva and sclera are non-icteric and not injected. Cornea within normal limits. Periorbital areas with no swelling, redness, or edema. ENT: Nares patent. No nasal discharge, no septal abnormalities noted. External auditory canals are clear. Oropharynx with no redness, swelling, or masses, exudates, or evidence of obstruction, uvula midline. Mucous membranes moist. Neck: Trachea midline, no thyromegaly or masses palpated, and no cervical lymphadenopathy. Supple, full range of motion without nuchal rigidity, or vertebral point tenderness. No Meningismus. Chest/axilla: Normal chest wall appearance and motion. Nontender with no deformity. No lesions are appreciated. Cardiovascular: Regular rate and rhythm with a normal S1 and S2. No gallops, murmurs, or rubs. Normal PMI, no JVD. No pulse deficits. Respiratory: Lungs have equal breath sounds bilaterally, clear to auscultation and percussion. No rales, rhonchi or wheezes noted. No increased work of breathing, no retractions or nasal flaring. Abdomen/GI: Soft, non-tender, with normal bowel sounds. No distension or tympany. No guarding or rebound. No evidence of tenderness throughout. Back: No spinal tenderness. No costovertebral tenderness. Full range of motion. Skin: Warm, dry with normal turgor. Normal color with no rashes, no lesions, and no evidence of cellulitis. MS/ Extremity: Pulses equal, no cyanosis. Neurovascular intact. Full, normal range of motion. Neuro: Awake and alert, GCS 15, oriented to person, place, time, and situation. Cranial nerves II-XII grossly intact. Motor strength 5/5 in all extremities. Sensory grossly intact. Cerebellar exam normal. Normal gait. Psych: Awake, alert, with orientation to person, place and time. Behavior, mood, and affect are within normal limits. 08:33 ECG was reviewed by the Attending Physician. EKG demonstrates normal sinus rhythm at 100 bpm with right bundle branch block with significant left axis deviation nonspecific diffuse ST/T changes without evidence of acute ischemia. Vital Signs: 08:05 BP 137 / 86; Pulse 104; Resp 20; Temp 97.9; Pulse Ox 93% on R/A; Weight 83.91 kg; ph Height 5 ft. 7 in. ; Pain 0/10; 09:30 BP 157 / 90; Pulse 105; Resp 18; Pulse Ox 95% on R/A; ph 10:30 BP 158 / 89; Pulse 105; Resp 18; Pulse Ox 94% on R/A; ph 11:18 BP 147 / 94; Pulse 92; Resp 18; Pulse Ox 94% on R/A; ph 12:00 BP 158 / 98; Pulse 101; Resp 18; Pulse Ox 98% ; ko1 13:00 BP 159 / 96; Pulse 96; Resp 17; Pulse Ox 99% ; ko1 14:16 BP 146 / 91; Pulse 100; Resp 18; Pulse Ox 94% on R/A; ph 15:04 BP 133 / 95; Pulse 97; Resp 18; Temp 97.6; Pulse Ox 96% on R/A; ph 08:05 Body Mass Index 28.97 (83.91 kg, 170.18 cm) ph 08:05 Pain Scale: Adult ph MDM: 08:08 Patient medically screened. sp3 08:34 Data reviewed: vital signs, nurses notes, EMS record, old medical records, lab test sp3 result(s), EKG, radiologic studies. ED course: 66-year-old male with a history of colon cancer now presents with chief complaint syncope differential diagnosis includes vasovagal syncope, cardiac event, dehydration, seizure, ICH, among others. Patient has had similar symptoms in the past. Will obtain CT scan of the head, EKG, laboratory values and provide generalized support. If work-up is negative, consider discharge patient home as his story and presentation is most consistent with vasovagal syncope. Disposition pending work-up and patient course.. 11:58 ED course: Patient is ruling in for WI with a troponin greater than 500. Repeat EKG sp3 demonstrates consistent right bundle branch block with no STEMI criteria. Heparin drip has been started and will also assess for PE with a CT angiogram of the chest with PE protocol. Patient will be admitted to hospitalist.. 10/10 08:08 Order name: Basic Metabolic Panel; Complete Time: 10:39 sp3 10/10 08:08 Order name: CBC with Diff sp3 10/10 08:08 Order name: LFT's; Complete Time: 10:39 sp3 10/10 08:08 Order name: Magnesium; Complete Time: 10:39 sp3 10/10 08:08 Order name: PT-INR sp3 10/10 08:08 Order name: Troponin HS; Complete Time: 10:39 sp3 10/10 10:44 Order name: Troponin High Sensitivity sp3 10/10 11:09 Order name: Troponin High Sensitivity EDMS 10/10 11:41 Order name: PTT, Activated Partial Thromb EDMS 10/10 13:37 Order name: CBC Smear Scan EDMS 10/10 08:08 Order name: XRAY Chest (1 view); Complete Time: 09:21 sp3 10/10 08:08 Order name: CT Head Brain wo Cont; Complete Time: 09:21 sp3 10/10 11:39 Order name: Chest Angio EDMS 10/10 08:08 Order name: EKG; Complete Time: 08:08 sp3 10/10 10:43 Order name: EKG; Complete Time: 13:06 sp3 10/10 08:08 Order name: Cardiac monitoring; Complete Time: 08:13 sp3 10/10 08:08 Order name: EKG - Nurse/Tech; Complete Time: 08:26 sp3 10/10 08:08 Order name: IV Saline Lock; Complete Time: 08:48 sp3 10/10 08:08 Order name: Labs collected and sent; Complete Time: 08:48 sp3 10/10 08:08 Order name: O2 Per Protocol; Complete Time: 08:13 sp3 10/10 08:08 Order name: O2 Sat Monitoring; Complete Time: 08:13 sp3 10/10 08:08 Order name: Seizure Precautions; Complete Time: 08:13 sp3 10/10 10:43 Order name: EKG - Nurse/Tech; Complete Time: 11:17 sp3 Administered Medications: 10:30 Drug: Ondansetron IVP 4 mg Route: IVP; Site: right wrist; ko1 11:17 Follow up: Response: No adverse reaction; Nausea is decreased ph 10:31 Drug: NS 0.9% IV 1000 ml Route: IV; Rate: 1 bolus; Site: right wrist; ko1 10:52 Drug: Metoprolol IVP 5 mg Route: IVP; Site: right hand; ph 11:17 Follow up: Response: No adverse reaction ph 12:12 Drug: Aspirin PO 325 mg Route: PO; ph 15:03 Follow up: Response: No adverse reaction ph 12:18 Drug: Heparin (WI-Bolus No thrombolytic) - HEParin IVP 60 units/kg {Co-Signature: ko1 ph (Teri Davis RN).} Route: IVP; Site: right hand; 15:03 Follow up: Response: No adverse reaction ph 12:18 Drug: Heparin ([place] Drip) - (D5W IV 500 ml, [place] [address] units) 12 units/kg/hr ph {Co-Signature: ko1 (Teri Davis RN).} Route: IV; Rate: calculated rate; Site: right hand; 15:04 Follow up: Response: No adverse reaction; IV Status: Infusion continued upon admission ph Disposition Summary: 10/10/22 12:01 Hospitalization Ordered Hospitalization Status: Inpatient Admission sp3 Provider: Wilber Ricci sp3 Location: Telemetry/[facility] (Inpatient) sp3 Condition: Stable sp3 Problem: new sp3 Symptoms: have improved sp3 Bed/Room Type: Standard sp3 Room Assignment: 403(10/10/22 14:48) kj1 Diagnosis - Syncope, NSTEMI sp3 - Syncope, NSTEMI, Pulmonary Embolism sp3 Forms: - Medication Reconciliation Form sp3 - SBAR form sp3 Signatures: Dispatcher [employer] EDJojo Sanders RN RN Fozia Mcelroy kj1 Rhianna Watts MD MD sp3 Teri Davis RN RN ko1 Teri Davis RN ko1 Corrections: (The following items were deleted from the chart) 13:25 13:07 Chest For PE Angio+CT.RAD.BRZ ordered. EDCO EDCO 14:48 12:01 sp3 kj1
--- NOTE | 2022-10-10 12:02 | ER ---
Nurse's Notes [facility] Magi Name: Tez Agustin Age: 66 yrs Sex: Male : 1955 Arrival Date: 10/10/2022 Time: 08:03 Bed 4 Private MD: Diagnosis: Syncope, NSTEMI;Syncope, NSTEMI, Pulmonary Embolism Presentation: 10/10 08:05 Chief complaint: EMS states: Family called EMS for "seizure-like activity" , pt hx of ph colon cancer, recently started chemo, states that he was in the restroom when he felt dizzy and sat down then lost consciousness, episode lasted approx 60 seconds, witnessed by family member, pt A\\T\\O x 4 upon EMS arrival, VSS. Coronavirus screen: Vaccine status: Patient reports receiving the 2nd dose of the covid vaccine. Ebola Screen: No symptoms or risks identified at this time. Initial Sepsis Screen: Does the patient meet any 2 criteria? No. Patient's initial sepsis screen is negative. Does the patient have a suspected source of infection? No. Patient's initial sepsis screen is negative. Risk Assessment: Do you want to hurt yourself or someone else? Patient reports no desire to harm self or others. 08:05 Method Of Arrival: EMS: [facility] ph 08:05 Acuity: JUANITO 2 ph 08:12 Onset of symptoms was October 10, 2022. ph Historical: - Allergies: 08:10 No Known Allergies; ph - Immunization history:: Adult Immunizations unknown. - Social history:: Smoking status: Patient denies any tobacco usage or history of. Screenin:12 [facility] ED Fall Risk Assessment (Adult) History of falling in the last 3 months, ph including since admission No falls in past 3 months (0 pts) Confusion or Disorientation No (0 pts) Intoxicated or Sedated No (0 pts) Impaired Gait No (0 pts) Mobility Assist Device Used No (0 pt) Altered Elimination No (0 pt) Score/Fall Risk Level 0 - 2 = Low Risk Oriented to surroundings, Maintained a safe environment, Hourly rounding (assess needs \\T\\ fall precautionary measures) done. Abuse screen: Denies threats or abuse. Denies injuries from another. Nutritional screening: No deficits noted. Tuberculosis screening: No symptoms or risk factors identified. Assessment: 08:23 General: Appears in no apparent distress. comfortable, well groomed, Behavior is calm, ph cooperative, appropriate for age. Pain: Denies pain. Neuro: Level of Consciousness is awake, alert, obeys commands, Oriented to person, place, time, situation, Reports a syncopal episode. Cardiovascular: Reports fatigue, lightheadedness, nausea, syncope, Denies chest pain, Rhythm is sinus tachycardia. Respiratory: Airway is patent Respiratory effort is even, unlabored. GI: Abdomen is non-distended, Reports nausea, Patient currently denies vomiting. Derm: Skin is pink, warm \\T\\ dry. Musculoskeletal: Circulation, motion, and sensation intact. Range of motion: intact in all extremities. Vital Signs: 08:05 BP 137 / 86; Pulse 104; Resp 20; Temp 97.9; Pulse Ox 93% on R/A; Weight 83.91 kg; ph Height 5 ft. 7 in. ; Pain 0/10; 09:30 BP 157 / 90; Pulse 105; Resp 18; Pulse Ox 95% on R/A; ph 10:30 BP 158 / 89; Pulse 105; Resp 18; Pulse Ox 94% on R/A; ph 11:18 BP 147 / 94; Pulse 92; Resp 18; Pulse Ox 94% on R/A; ph 12:00 BP 158 / 98; Pulse 101; Resp 18; Pulse Ox 98% ; ko1 13:00 BP 159 / 96; Pulse 96; Resp 17; Pulse Ox 99% ; ko1 14:16 BP 146 / 91; Pulse 100; Resp 18; Pulse Ox 94% on R/A; ph 15:04 BP 133 / 95; Pulse 97; Resp 18; Temp 97.6; Pulse Ox 96% on R/A; ph 08:05 Body Mass Index 28.97 (83.91 kg, 170.18 cm) ph 08:05 Pain Scale: Adult ph ED Course: 08:05 Patient arrived in ED. ph 08:05 Rhianna Watts MD is Attending Physician. sp3 08:10 Triage completed. ph 08:12 Arm band placed on Patient placed in an exam room, on a stretcher, on human geography faculty member, ph on pulse oximetry. 08:12 Patient has correct armband on for positive identification. Placed in gown. Bed in low ph position. Call light in reach. Side rails up X2. Client placed on continuous cardiac and pulse oximetry monitoring. NIBP monitoring applied. Door closed. Noise minimized. Warm blanket given. 08:25 Jojo Caruso, RN is Primary Nurse. ph 08:26 XRAY Chest (1 view) In Process Unspecified. EDMS 08:45 CT Head Brain wo Cont In Process Unspecified. EDMS 09:33 Missed attempt(s): 20 gauge in left antecubital area. Bleeding controlled, band aid ph applied, catheter tip intact. Missed attempt(s): 22 gauge in right antecubital area. Bleeding controlled, band aid applied, catheter tip intact. 10:06 Inserted saline lock: 22 gauge in right hand, using aseptic technique. Blood collected. ss 12:01 Wilber Ricci is Hospitalizing Provider. sp3 12:22 Missed attempt(s): 22 gauge in right forearm. vg1 12:47 Chest Angio In Process Unspecified. EDMS 15:04 No provider procedures requiring assistance completed. Patient admitted, IV remains in ph place. Administered Medications: 10:30 Drug: Ondansetron IVP 4 mg Route: IVP; Site: right wrist; ko1 11:17 Follow up: Response: No adverse reaction; Nausea is decreased ph 10:31 Drug: NS 0.9% IV 1000 ml Route: IV; Rate: 1 bolus; Site: right wrist; ko1 10:52 Drug: Metoprolol IVP 5 mg Route: IVP; Site: right hand; ph 11:17 Follow up: Response: No adverse reaction ph 12:12 Drug: Aspirin PO 325 mg Route: PO; ph 15:03 Follow up: Response: No adverse reaction ph 12:18 Drug: Heparin (VA-Bolus No thrombolytic) - HEParin IVP 60 units/kg {Co-Signature: ko1 ph (Teri Davis RN).} Route: IVP; Site: right hand; 15:03 Follow up: Response: No adverse reaction ph 12:18 Drug: Heparin (VA Drip) - (D5W IV 500 ml, [place] [address] units) 12 units/kg/hr ph {Co-Signature: ko1 (Teri Davis RN).} Route: IV; Rate: calculated rate; Site: right hand; 15:04 Follow up: Response: No adverse reaction; IV Status: Infusion continued upon admission ph Medication: 08:12 VIS not applicable for this client. ph Outcome: 12:01 Decision to Hospitalize by Provider. don 15:04 Admitted to Med/surg accompanied by tech, family with patient, via stretcher, room 403, ph Report called to Nadira 15:04 Condition: stable 15:10 Patient left the ED. ko1 Signatures: Dispatcher [employer] EDMS Rae Delong, RN Jojo Saenz RN RN Inez Campos RN RN 1 Rhianna Watts MD MD sp3 Teri Davis RN RN ko1 Teri Davis RN ko1
--- NOTE | 2022-10-10 13:04 | RAD REPORT ---
EXAM DESCRIPTION: CT - Chest Angio - 10/10/2022 12:45 pm CLINICAL HISTORY: syncope COMPARISON: Chest Single View dated 10/10/2022 TECHNIQUE: Thin axial CT images of the chest were obtained following administration of 95 mL Isovue 370 IV contrast. Multiplanar reconstructions, and maximum intensity projection reconstructions were g enerated and reviewed. Exam utilizes a protocol for optimal evaluation of pulmonary arterial tree. All CT scans are performed using dose optimization technique as appropriate and may include automated exposure control or mA/KV adjustment according to patient size. FINDINGS: Prominent bilateral pulmonary emboli, with a small saddle component, and obstructing compo nents involving branches to the posterior aspect of the right upper lobe, and anterior aspect of the left upper lobe. Possibility of right heart strain, with dilation of the right ventricle. The interventricular septum is straightened. No acute or significant aorta findings. No mass or infiltrate in the lung parenchyma. Mild paraseptal emphysematous changes. No pleural thick ening or pleural effusion. No pneumothorax. No abnormal mediastinal or hilar masses or lymphadenopathy seen. No chest wall mass or abnormal axill iary lymphadenopathy. Status post cholecystectomy. Hyperdense material along the posterior aspect of the right liver lobe, could relate to surgical sutures or embolization material. IMPRESSION: Large burden of pulmonary emboli as above, with some obstructing components along branch es to bilateral upper lobes. Possible right heart strain with dilation of the right ventricle and straightening of the interventri cular septum. No acute pulmonary process. The findings were communicated to Rhianna Watts on 10/10/2022 at 12:55 hours.
[2022-10-10 13:36] LABS: Platelet Estimate ADEQ; White Blood Cell Scan LEUKOPENIA (OK)
[2022-10-10 13:37] LABS: ACANTHOCYTE 1+; Anisocytosis 1+; Blood Morphology Comment NOTED (NOT SEEN); Ovalocytes 1+; Poikilocytosis 1+
--- NOTE | 2022-10-10 13:40 | P.HP ---
Certification for Inpatient Patient admitted to: Observation With expected LOS: <2 Midnights Practitioner: I am a practitioner with admitting privileges, knowledge of patient current condition, hospital course, and medical plan of care. Services: Services provided to patient in accordance with Admission requirements found in Title 42 Section 412.3 of the Code of Federal Regulations Patient History Date of Service: 10/10/22 Reason for admission: Near syncope History of Present Illness: 66-year-old gentleman with a history of colon cancer status post colon resection currently on chemotherapy was brought to the emergency department due to a syncopal episode at home. According to report patient felt dizzy, followed by passing out and loss of consciousness after getting up from the WC after BM. Family reports witnessing seizure-like activity. Episode lasted about 60 seconds per family. EMS was called and patient was brought to the emergency department for evaluation. Work-up in the emergency department revealed neutropenia and elevated troponin. Blood pressure noted to be stable, patient denied any shortness of breath or chest pain. Patient noted to be alert and oriented x3. CTA thorax demonstrated bilateral PE. Cardiology Dr. Huerta contacted who recommended heparin drip. Patient is hospitalized for further evaluation and management. Allergies No Known Allergies Allergy (Unverified 10/10/22 11:35) - Past Medical/Surgical History -: Colon cancer -: Hypertension -: Diabetes -: Hypercholesterolemia -: Colon resection -: Liver lesion resection -: Cholecystectomy - Family History Father -: Diabetes - Social History Smoking Status: Never smoker Alcohol use: Yes CD- Drugs: No Place of Residence: Home Review of Systems Other: Patient denied any fever or chills or nausea or vomiting or diarrhea. He denied any palpitation. He denied any headache. Except as documented, all other systems reviewed and negative. Physical Examination - Physical Exam General: Alert, In no apparent distress, Oriented x3 HEENT: Atraumatic, PERRLA, Mucous membr. moist/pink, EOMI, Sclerae nonicteric Neck: Supple, JVD not distended Respiratory: Clear to auscultation bilaterally, Normal air movement Cardiovascular: No edema, Regular rate/rhythm, Normal S1 S2, No murmurs Capillary refill: <2 Seconds Gastrointestinal: Normal bowel sounds, Soft and benign, Non-distended, No tenderness Musculoskeletal: No swelling, No tenderness Integumentary: No rashes, No erythema, No cyanosis Neurological: Normal speech, Normal strength at 5/5 x4 extr, Cranial nerves 3-12 intact Lymphatics: No axilla or inguinal lymphadenopathy - Studies Laboratory Data (last 24 hrs) 10/10/22 10:04: PT 13.9 H, INR 1.26, APTT 25.5 10/10/22 10:04: WBC 1.30 L, Hgb 12.2 L, Hct 37.5 L, Plt Count 114 L 10/10/22 10:04: Sodium 134 L, Potassium 3.9, BUN 20 H, Creatinine 1.15, Glucose 335 H, Magnesium 2.5 H, Total Bilirubin 0.7, AST 34, ALT 40, Alkaline Phosphatase 147 H Assessment and Plan - Problems (Diagnosis) (1) Elevated troponin Current Visit: Yes Status: Acute (2) Acute pulmonary embolism Current Visit: Yes Status: Acute (3) Essential hypertension Current Visit: Yes Status: Acute (4) Type II diabetes mellitus Current Visit: Yes Status: Acute - Plan Patient with bilateral PE with large clot burden and possible right heart strain. Admit patient to the medical floor Telemetry to monitor for arrhythmia Continue heparin drip started in the ED. Elevated troponin likely related to acute PE Continue to trend troponin Obtain echo Cardiology consult. Consulted pulmonary regarding PE with large clot burden. Insulin sliding scale for glucose management. Hold home antihypertensives for now. Supportive measures-antiemetics and pain medications as needed. - Advance Directives Does patient have a Living Will: No Does patient have a Durable POA for Healthcare: No
[2022-10-10] MEDS ORDERED: HEPARIN/D5W 25,000 UNIT/500 ML BAG IV PRN (14:38)
[2022-10-10] MEDS ORDERED: ONDANSETRON 4 MG/2 ML VIAL IV PRN (14:38)
[2022-10-10] MEDS ORDERED: ACETAMINOPHEN 500 MG TAB PO PRN (14:38)
[2022-10-10 15:55] VITALS: BMI 29.0
[2022-10-10] MEDS: INSULIN -REGULAR HUMAN 50 UNIT/0.5 ML ML SQ SCH ×2 (16:45→21:13)
[2022-10-11 07:38] LABS: Absolute Lymphocytes (CBC) 1.1 K/uL (0.7-4.9); Hematocrit 33.8 % (39.6-49.0); Lymphocytes % 48.4 % (15.3-44.8); MCV 96.7 fL (80-100); MPV 8.7 fL (7.6-11.3)
[2022-10-11 07:46] LABS: Albumin 2.5 g/dL (3.4-5.0); Bilirubin Total 0.3 mg/dL (0.2-1.0); Magnesium 2.2 mg/dL (1.6-2.4); Phosphorus 2.5 mg/dL (2.5-4.9); Potassium 3.7 mEq/L (3.5-5.1); Protein, Total 6.4 g/dL (6.4-8.2)
[2022-10-11 08:20] VITALS: BP 122/82; TEMP 97.8
[2022-10-11] MEDS: INSULIN -REGULAR HUMAN 50 UNIT/0.5 ML ML SQ SCH (08:30)
[2022-10-11] MEDS ORDERED: APIXABAN 5 MG TABLET PO SCH (09:00)
[2022-10-11 10:33] LABS: Blood Morphology Comment NOTED (NOT SEEN); Platelet Estimate ADEQ
[2022-10-11 10:34] LABS: ACANTHOCYTE 1+; Anisocytosis 1+; Ovalocytes 1+; Poikilocytosis 1+
[2022-10-11 10:40] VITALS: O2SAT 92
--- NOTE | 2022-10-11 10:41 | P.DS ---
Admission Date: 10/10/22 Discharge Date: 10/11/22 Disposition: ROUTINE DISCHARGE Discharge Condition: FAIR Reason for Admission: Near syncope - Problems (1) Elevated troponin Current Visit: Yes Status: Acute (2) Acute pulmonary embolism Current Visit: Yes Status: Acute (3) Essential hypertension Current Visit: Yes Status: Acute (4) Type II diabetes mellitus Current Visit: Yes Status: Acute Brief History of Present Illness: 66-year-old gentleman with a history of colon cancer status post colon resection currently on chemotherapy was brought to the emergency department due to a syncopal episode at home. According to report patient felt dizzy, followed by passing out and loss of consciousness after getting up from the WC after BM. Family reports witnessing seizure-like activity. Episode lasted about 60 seconds per family. EMS was called and patient was brought to the emergency department for evaluation. Work-up in the emergency department revealed neutropenia and elevated troponin. Blood pressure noted to be stable, patient denied any shortness of breath or chest pain. Patient noted to be alert and oriented x3. CTA thorax demonstrated bilateral PE. Cardiology Dr. Huerta contacted who recommended heparin drip. Patient was hospitalized for further evaluation and management. Hospital Course: Patient treated with heparin drip. He remained stable on room air and had no complain. He had 1 episode of hemoptysis likely secondary to high high PTT in the context of large bilateral pulmonary embolism. He had no more hemoptysis. He denied any chest or shortness of breath. He was able to ambulate in the hallway without shortness of breath and without hypoxia. He had no tachycardia. He was seen and evaluated by pulmonary Dr. Jimenes who recommended apixaban for full anticoagulation. Noted pancytopenia with significant neutropenia. Patient was afebrile during the hospital stay. He is deemed stable for discharge per pulmonary. Vital Signs/Physical Exam: Temp Pulse Resp BP Pulse Ox 97.8 F 84 16 122/82 92 10/11/22 08:00 10/11/22 08:00 10/11/22 08:00 10/11/22 08:00 10/11/22 08:00 General: Alert, In no apparent distress, Oriented x3 HEENT: Mucous membr. moist/pink Neck: JVD not distended Respiratory: Clear to auscultation bilaterally, Normal air movement Cardiovascular: No edema, Regular rate/rhythm, Normal S1 S2, No murmurs Capillary refill: <2 Seconds Gastrointestinal: Normal bowel sounds, Soft and benign, Non-distended, No tenderness Musculoskeletal: No swelling Integumentary: No rashes, No cyanosis Neurological: Normal strength at 5/5 x4 extr Laboratory Data at Discharge: WBC 2.20 thou/uL (4.3-10.9) L 10/11/22 07:02 Hgb 11.4 g/dL (13.6-17.9) L 10/11/22 07:02 Hct 33.8 % (39.6-49.0) L 10/11/22 07:02 Plt Count 137 thou/uL (152-406) L 10/11/22 07:02 PT 13.9 SECONDS (9.5-12.5) H 10/10/22 10:04 INR 1.26 10/10/22 10:04 APTT 75.9 SECONDS (24.3-36.9) H 10/11/22 07:02 Sodium 136 mEq/L (136-145) 10/11/22 07:02 Potassium 3.7 mEq/L (3.5-5.1) 10/11/22 07:02 BUN 17 mg/dL (7-18) 10/11/22 07:02 Creatinine 0.93 mg/dL (0.70-1.30) 10/11/22 07:02 Glucose 258 mg/dL (74-106) H 10/11/22 07:02 Phosphorus 2.5 mg/dL (2.5-4.9) 10/11/22 07:02 Magnesium 2.2 mg/dL (1.6-2.4) 10/11/22 07:02 Total Bilirubin 0.3 mg/dL (0.2-1.0) 10/11/22 07:02 AST 19 U/L (15-37) 10/11/22 07:02 ALT 27 U/L (16-61) 10/11/22 07:02 Alkaline Phosphatase 118 U/L (45-117) H 10/11/22 07:02 Triglycerides 85 mg/dL (<150) 10/11/22 07:02 Cholesterol 186 mg/dL (<200) 10/11/22 07:02 HDL Cholesterol 96 mg/dL (40-60) H 10/11/22 07:02 Cholesterol/HDL Ratio 1.94 10/11/22 07:02 Home Medications: Aspirin Chewable [Aspirin Chewable*] 1 tab PO DAILY 10/10/22 Atorvastatin Calcium [Lipitor*] 10 mg PO BEDTIME 10/10/22 Bimatoprost [Lumigan Opthalmic Drops*] 1 drop EACH EYE BEDTIME 10/10/22 Diphenoxylate HCl/Atropine [Diphenoxylate-Atrop 2.5-0.025] 1 tab PO QIDP PRN 10/10/22 Ferrous Sulfate 1 tab PO BID 10/10/22 Insulin Lispro [Humalog Kwikpen U-100] 4 units SQ ACHS 10/10/22 Ondansetron [Zofran (Odt)*] 8 mg PO Q8HP PRN 10/10/22 Sitagliptin Phosphate [Januvia] 100 mg PO DAILY 10/10/22 Apixaban [Eliquis] 5 mg PO BID #74 tab 10/11/22 New Medications: Apixaban [Eliquis] 5 mg PO BID #74 tab Diet: ADA Activity: Ad mickey Followup: SHEYLA CARRION [Primary Care Provider] - 1 Week Time spent managing pt's care (in minutes): 33
--- NOTE | 2022-10-11 12:20 | P.CNS ---
Date of Consult: 10/11/22 Reason for Consult: Pulmonary embolism Chief Complaint: Near syncope History of Present Illness: 66 years of age has been treated for colon cancer developed sudden onset of syncopal attack. Sweating and recovered fairly quickly ended up in the hospital diagnosed with pulmonary embolism is currently doing well denies any shortness of breath chest pain hemodynamically stable Allergies No Known Allergies Allergy (Unverified 10/10/22 11:35) Home Medications: Aspirin Chewable [Aspirin Chewable*] 1 tab PO DAILY 10/10/22 Atorvastatin Calcium [Lipitor*] 10 mg PO BEDTIME 10/10/22 Bimatoprost [Lumigan Opthalmic Drops*] 1 drop EACH EYE BEDTIME 10/10/22 Diphenoxylate HCl/Atropine [Diphenoxylate-Atrop 2.5-0.025] 1 tab PO QIDP PRN 10/10/22 Ferrous Sulfate 1 tab PO BID 10/10/22 Insulin Lispro [Humalog Kwikpen U-100] 4 units SQ ACHS 10/10/22 Ondansetron [Zofran (Odt)*] 8 mg PO Q8HP PRN 10/10/22 Sitagliptin Phosphate [Januvia] 100 mg PO DAILY 10/10/22 Apixaban [Eliquis] 5 mg PO BID #74 tab 10/11/22 - Past Medical/Surgical History Diabetic: Yes -: Colon cancer -: Hypertension -: Diabetes -: Hypercholesterolemia -: Colon resection -: Liver lesion resection -: Cholecystectomy - Family History Father Medical History: Diabetes - Social History Alcohol use: Yes CD- Drugs: No Place of Residence: Home Review of Systems 10-point ROS is otherwise unremarkable General: Weakness Physical Examination Temp Pulse Resp BP Pulse Ox 97.8 F 84 16 122/82 92 10/11/22 08:00 10/11/22 08:00 10/11/22 08:00 10/11/22 08:00 10/11/22 08:00 General: Alert, In no apparent distress, Oriented x3 HEENT: Atraumatic Neck: Supple Respiratory: Clear to auscultation bilaterally Cardiovascular: No edema, Regular rate/rhythm, Normal S1 S2 Gastrointestinal: Normal bowel sounds, Soft and benign Musculoskeletal: No clubbing, No swelling Laboratory Data (last 24 hrs) 10/10/22 10:04: WBC 1.30 L, Hgb 12.2 L, Hct 37.5 L, Plt Count 114 L - Problems (1) Acute pulmonary embolism Status: Acute Plan: Patient is 66 years of age with a history of colon cancer treated with chemothe rapy admitted with the bilateral pulmonary embolism doing well hemodynamically stable oxygenation satisfactory [place] any shortness of breath to ambulate if tolerating possible discharge on Eliquis 10 mg twice a day for 7 days then 5 mg twice a day patient is pancytopenic from his chemotherapy his troponins are trending down he is to follow-up with his heme-onc Dr. Continue anticoagulation
--- NOTE | 2022-10-11 17:51 | EKG ---
Test Date: 2022-10-10 Test Time: 11:12:10 Gis Instructor: PH MEASUREMENT RESULTS: Intervals: Rate: 91 MT: 136 QRSD: 136 QT: 386 QTc: 474 [place]: P: 73 MT: 136 QRS: -73 T: 54 INTERPRETIVE STATEMENTS: Normal sinus rhythm Left axis deviation Right bundle branch block Abnormal ECG Compared to ECG 10/10/2022 08:25:56 No significant changes Electronically Signed On 10-11-22 17:49:25 CDT by Yariel Huerta
--- NOTE | 2022-10-11 17:51 | EKG ---
Test Date: 2022-10-10 Test Time: 08:25:56 Rn Practitioner: RANDY MEASUREMENT RESULTS: Intervals: Rate: 100 DC: 136 QRSD: 136 QT: 380 QTc: 490 [place]: P: 73 DC: 136 QRS: -67 T: 60 INTERPRETIVE STATEMENTS: Normal sinus rhythm Left axis deviation Right bundle branch block Abnormal ECG No previous ECG available for comparison Electronically Signed On 10-11-22 17:49:29 CDT by Yariel Huerta
--- NOTE | 2022-10-12 06:56 | ECHO ---
HEIGHT: 5 ft 7 in WEIGHT: 185 lb 0 oz DATE OF STUDY: 10/11/[address]: Wilber Ricci MD 2-DIMENSIONAL: YES M.MODE: YES DOPPLER: YES COLOR FLOW: YES TDS: PORTABLE: YES DEFINITY: BUBBLE STUDY: DIAGNOSIS: SYNCOPE CARDIAC HISTORY: CATHERIZATION: SURGERY: PROSTHETIC VALVE: PACEMAKER: MEASUREMENTS (cm) DIASTOLIC (NORMALS) SYSTOLIC (NORMALS) IVSd 1.2 (0.6-1.2) LA Diam 3.1 (1.9-4.0) LVEF 64% LVIDd 2.2 (3.5-5.7) LVIDs 1.5 (2.0-3.5) %FS 33% LVPWd 1.1 (0.6-1.2) Ao Diam 3.0 (2.0-3.7) 2 DIMENSIONAL ASSESSMENT: RIGHT ATRIUM: NORMAL LEFT ATRIUM: NORMAL RIGHT VENTRICLE: NORMAL LEFT VENTRICLE: LEFT VENTRICULAR HYPERTROPHY TRICUSPID VALVE: MODERATE TRICUSPID REGURGITATION MITRAL VALVE: NORMAL PULMONIC VALVE: NORMAL AORTIC VALVE: NORMAL PERICARDIAL EFFUSION: NONE AORTIC ROOT: NORMAL LEFT VENTRICULAR WALL MOTION: NORMAL DOPPLER/COLOR FLOW: SEE BELOW COMMENTS: 1. NORMAL LEFT VENTRICULAR EJECTION FRACTION GREATER THAN 60% 2. NORMAL WALL MOTION 3. MILD CONCENTRIC LEFT VENTRICULAR HYPERTROPHY 4. MODERATE TRICUSPID REGURGITATION 5. DIASTOLIC DYSFUNCTION (MILD) 6. RIGHT VENTRICULAR SYSTOLIC PRESSURE IS 40-45 mmHg (MILDLY ELEVATED) TECHNOLOGIST: MURRAY SHOEMAKER
== END 2022-10-11 11:40 | disposition home or self-care (01) ==
LOC: EDBD 08:03 → ER 08:03 → ERHOLD 13:23 → 4TH 14:53
PROVIDERS: ADMIT Internal Medicine; ATTEND Internal Medicine
DX: R55 Syncope and collapse (principal); C18.9 Malignant neoplasm of colon, unspecified; R77.8 Other specified abnormalities of plasma proteins; I26.99 Other pulmonary embolism without acute cor pulmonale; E11.9 Type 2 diabetes mellitus without complications; I10 Essential (primary) hypertension; R04.2 Hemoptysis; D61.818 Other pancytopenia; D70.9 Neutropenia, unspecified
CPT/HCPCS: 93005 ×2; 93306; 85025 ×2; 80048; 36415; 83735 ×2; 84100; 85610; 80061; 82947 ×3; 80076; 85730 ×7; 84484 ×5; 80053; 70450; 71275; 71045; 94760 ×3; 99285; Q9967; J1815 ×3; J1644; J2405; J7030; G0378 ×4